=== PATIENT | male | born 1950 | race Caucasian/White ===

== ENCOUNTER 2018-01-29 06:03 | Day surgery (SDC) ==
[2018-01-29] MEDS: TETRACAINE 0.5% UNIT-DOSE OP PRN ×2 (06:25→07:50)
[2018-01-29] MEDS: BETADINE OPTH PREP OP PRN ×2 (06:25→07:50)
[2018-01-29] MEDS: CYCLOGYL 2% OPTH OP PRN ×3 (06:26→06:36)
[2018-01-29] MEDS ORDERED: DEX-MOXI-KETOR OPTH INJ 1/0.5/0.4 MG/ML IO ONE (06:36)
[2018-01-29] MEDS ORDERED: BSS WITH EPINEPHRINE OP ONE (06:36)
[2018-01-29] MEDS ORDERED: LIDOCAINE 1%/PHENYLEPHRINE 1.5% BSS (SURGERY) INTRAOCULA ONE (06:36)
[2018-01-29] MEDS ORDERED: ZOFRAN 4 MG/2 ML IVP ONE (06:36)
[2018-01-29] MEDS ORDERED: BRIMONIDINE TARTRATE 0.2% OPTH SOL OP PRN (06:36)
[2018-01-29] MEDS ORDERED: LIDOCAINE 1% 20 ML MDV ID STA (06:36)
[2018-01-29 06:49] VITALS: TEMP 97.8
[2018-01-29] MEDS ORDERED: SUBLIMAZE ONE (07:48)
[2018-01-29] MEDS ORDERED: ZOFRAN 4 MG/2 ML ONE (07:48)
[2018-01-29] MEDS ORDERED: VERSED ONE (07:48)
[2018-01-31 12:17] VITALS: BP 128/77
== END 2018-01-30 08:35 | disposition home or self-care (01) ==
LOC: SURG 06:03
PROVIDERS: ATTEND Ophthalmology
DX: H25.11 Age-related nuclear cataract, right eye (principal)

== ENCOUNTER 2018-02-05 07:47 | Day surgery (SDC) ==
[2018-02-05] MEDS: TETRACAINE 0.5% UNIT-DOSE OP PRN ×2 (09:30→09:48)
[2018-02-05] MEDS: BETADINE OPTH PREP OP PRN ×2 (09:30→09:48)
[2018-02-05] MEDS: CYCLOGYL 2% OPTH OP PRN ×3 (09:31→09:41)
[2018-02-05] MEDS ORDERED: BRIMONIDINE TARTRATE 0.2% OPTH SOL OP PRN (09:33)
[2018-02-05] MEDS ORDERED: LIDOCAINE 1% 20 ML MDV ID STA (09:33)
[2018-02-05] MEDS ORDERED: ZOFRAN 4 MG/2 ML IVP ONE (09:33)
[2018-02-05 09:38] VITALS: TEMP 98.4
[2018-02-05] MEDS ORDERED: VERSED ONE (09:59)
[2018-02-05] MEDS: LIDOCAINE 1%/PHENYLEPHRINE 1.5% BSS (SURGERY) INTRAOCULA ONE ×2 (09:59→10:06)
[2018-02-05] MEDS ORDERED: SUBLIMAZE ONE (09:59)
[2018-02-05] MEDS: BSS WITH EPINEPHRINE OP ONE ×2 (09:59→10:06)
[2018-02-05] MEDS ORDERED: ZOFRAN 4 MG/2 ML ONE (09:59)
[2018-02-05] MEDS: DEX-MOXI-KETOR OPTH INJ 1/0.5/0.4 MG/ML IO ONE ×2 (10:00→10:13)
[2018-02-06 13:26] VITALS: BP 128/56
== END 2018-02-05 10:55 | disposition home or self-care (01) ==
LOC: SURG 07:47
PROVIDERS: ATTEND Ophthalmology
DX: H25.12 Age-related nuclear cataract, left eye (principal)